=== PATIENT | female | born 1950 | race Caucasian/White ===

== ENCOUNTER 2021-09-14 11:29 | Emergency (ER) | payer MEDICARE, OTHER ==
[2021-09-14] MEDS ORDERED: Sodium Chloride 0.9% 10 ML Syringe FLUSH PRN (12:13)
[2021-09-14] MEDS ORDERED: Ondansetron 4 MG/2 ML SDV IVPUSH ONE (12:15)
[2021-09-14] MEDS ORDERED: Lactated Ringers 1,000 ML IV ONE (12:15)
[2021-09-14 12:55] LABS: CHLORIDE,CL 101 mmol/L (98-107); SODIUM,NA 135 mmol/L (136-145)
[2021-09-14 12:56] LABS: ANION GAP 15.2 mmol/L (5-15); ESTIMATED GFR 92 mL/min (>=60)
[2021-09-14 13:17] LABS: CORONAVIRUS COVID-19 NAA NEGATIVE (NEGATIVE)
[2021-09-14 13:18] LABS: RESPIRATORY SYNCYTIAL VIR NAA NEGATIVE (NEGATIVE)
[2021-09-14] MEDS ORDERED: Take Home: Ondansetron 4 MG Tab.DIS, 5 Tab Pack PO ONE (14:00)
== END 2021-09-14 14:20 | disposition home or self-care (01) ==
LOC: VM.ED 11:29
DX: K52.9 Noninfective gastroenteritis and colitis, unspecified (principal); Z20.822 Contact with and (suspected) exposure to COVID-19; Z79.899 Other long term (current) drug therapy; Z88.5 Allergy status to narcotic agent
CPT/HCPCS: 0241U; 36415; 74019; 80053; 81003; 83605; 83690; 83735; 84100; 85025; 86140; 87040; 96361; 96374; 99284; 99284-25; J2405; J7120; Q0162